=== PATIENT | female | born 1990 | race Caucasian/White ===

== ENCOUNTER 2017-07-05 19:13 | Emergency (ER) | payer OTHER ==
[2017-07-05 19:38] VITALS: BP 135/67
--- NOTE | 2017-07-05 20:08 | UC ---
Eye Complaint HPI - HPI Summary HPI Summary: 27 yo female with left eye redness and tearing a 1 day similar symptoms 3 weeks rxed with eye oint - History of Current Complaint Chief Complaint: UCEye Stated Complaint: LEFT EYE COMPLAINT Time Seen by Provider: 07/05/17 19:34 Hx Obtained From: Patient Hx Last Menstrual Period: DEPO INJ Onset/Duration: Gradual Onset, Lasting Hours Timing: Constant Severity Initially: Mild Pain Intensity: 0 Pain Scale Used: 0-10 Numeric Location of Injury: Conjunctiva Aggravating Factor(s): Nothing Alleviating Factor(s): Nothing Associated Signs And Symptoms: Positive: Drainage (Clear) Eyes: 1 - whitish growth 2 - injected conjunctiva - Risk Factors Penetrating Injury Risk Factor: Negative Acute Glaucoma Risk Factors: Negative Optic Artery Occlusion Risk Factors: Negative - Allergies/Home Medications Allergies/Adverse Reactions: Allergies Allergy/AdvReac Type Severity Reaction Status Date / Time No Known Allergies Allergy Verified 07/05/17 19:33 PMH/Surg Hx/FS Hx/Imm Hx Previously Healthy: Yes Other History Of: Negative For: HIV, Hepatitis C - Surgical History Surgical History: Yes Surgery Procedure, Year, and Place: lap bharath. lithotripsy - Family History Known Family History: Positive: Hypertension Negative: Cardiac Disease - Social History Alcohol Use: None Substance Use Type: None Smoking Status (MU): Never Smoked Tobacco Review of Systems Constitutional: Negative Skin: Negative Eyes: Eye Redness, Other - tearing ENT: Negative Respiratory: Negative Cardiovascular: Negative Gastrointestinal: Negative Genitourinary: Negative Motor: Negative Neurovascular: Negative Musculoskeletal: Negative Neurological: Negative Psychological: Negative Is Patient Immunocompromised?: No All Other Systems Reviewed And Are Negative: Yes Physical Exam Triage Information Reviewed: Yes Appearance: Well-Appearing, No Pain Distress, Well-Nourished Vital Signs: Initial Vital Signs Temp 98 F 07/05/17 19:33 Pulse 85 07/05/17 19:33 Resp 16 07/05/17 19:33 BP 135/67 07/05/17 19:33 Pulse Ox 98 07/05/17 19:33 Vital Signs Reviewed: Yes Eyes: Positive: Conjunctiva Inflamed ENT: Positive: Hearing grossly normal, Pharynx normal. Negative: Nasal drainage , TMs normal, Trismus, Muffled voice, Hoarse voice Neck: Positive: Supple, Nontender, No Lymphadenopathy Respiratory: Positive: Lungs clear, Normal breath sounds, No respiratory distress, No accessory muscle use Cardiovascular: Positive: RRR, No Murmur Musculoskeletal: Positive: ROM Intact, No Edema Neurological: Positive: Alert Psychological Exam: Normal Skin Exam: Normal Eye Complaint Course/Dx - Differential Dx/Diagnosis Provider Diagnoses: left red eye of uncertain cause. Pinguecula vs pterygia vs other Discharge - Discharge Plan Condition: Stable Disposition: HOME Prescriptions: Polymyx/Trimethoprim OPTH* [Polytrim OPHTH*] 1 - 2 drop LEFT EYE QID #1 btl Patient Education Materials: Pterygium (ED), Pinguecula (ED) Forms: *Work Release Referrals: Anatoly Khoury MD [Medical Doctor] - Flores CASANOVA,Pamela [Medical Doctor] - Additional Instructions: you need to see an email campaign specialist for a definite diagnosis and treatment
== END 2017-07-05 20:02 | disposition home or self-care (01) ==
LOC: UCCORT 19:13
DX: H57.8 Other specified disorders of eye and adnexa (principal)
CPT/HCPCS: 99212; G0463

== ENCOUNTER 2018-04-21 17:11 | Emergency (ER) | payer OTHER ==
[2018-04-21 17:38] VITALS: BP 123/73
--- NOTE | 2018-04-21 18:01 | UC ---
Lower Extremity/Ankle HPI - HPI Summary HPI Summary: 27 year old female presents with area of erythema and tenderness to the posteriolateral aspect of her distal upper leg. States she noticed it yesterday. States only painful if touched. Patient does report DVT at age 16 while on an OCP but states this is not anything like that episode. Denies injury , fever, chills, chest pain, shortness of breath, calf tenderness or swelling. - History of Current Complaint Chief Complaint: UCSkin Stated Complaint: LEFT LEG CONCERN Time Seen by Provider: 04/21/18 17:40 Hx Obtained From: Patient Hx Last Menstrual Period: pt is on depo and states not getting a menses Pain Intensity: 0 - Allergies/Home Medications Allergies/Adverse Reactions: Allergies Allergy/AdvReac Type Severity Reaction Status Date / Time No Known Allergies Allergy Verified 07/05/17 19:33 Home Medications: Home Medications Medroxyprogesterone Acetate [Depo-Provera Contraceptiv] 150 mg IM MONTHLY [History Confirmed 04/21/18] PMH/Surg Hx/FS Hx/Imm Hx Previously Healthy: Yes Cardiovascular History: Deep Vein Thrombosis - Surgical History Surgical History: Yes Surgery Procedure, Year, and Place: lap bharath. lithotripsy - Family History Known Family History: Positive: Hypertension - Social History Alcohol Use: None Substance Use Type: None Smoking Status (MU): Never Smoked Tobacco Review of Systems All Other Systems Reviewed And Are Negative: Yes Constitutional: Negative: Fever, Chills Skin: Positive: Other - See HPI Respiratory: Negative: Shortness Of Breath, Cough Cardiovascular: Negative: Palpitations, Chest Pain Motor: Negative: Decreased ROM, Weakness Neurovascular: Negative: Decreased Sensation Musculoskeletal: Negative: Arthralgia, Calf Tenderness, Decreased ROM, Edema Is Patient Immunocompromised?: No Physical Exam - Summary Physical Exam Summary: GENERAL APPEARANCE: Well developed, obese, alert and cooperative, and appears to be in no acute distress. CARDIAC: Normal S1 and S2. No S3, S4 or murmurs. Rhythm is regular. Extremities are warm and well perfused. Capillary refill is less than 2 seconds. LUNGS: Clear to auscultation and percussion without rales, rhonchi, wheezing or diminished breath sounds. ABDOMEN: Positive bowel sounds. Soft, nondistended, nontender. No guarding or rebound. No masses or hepatosplenomegally. MUSKULOSKELETAL: ROM intact to all extremities. No joint erythema or tenderness. Normal muscular development. Normal gait. Bilateral calves supple. EXTREMITIES: No significant deformity or joint abnormality. No edema. Peripheral pulses intact. There are a large number of prominent varicose veins present to the bilateral lower extremities. SKIN: 4 cm area of erythema with mild tenderness to the posteriolateral aspect of the distal left upper leg immediate over a hard, rope-like varicose vein. There are no lesions, induration, or fluctuance present. Triage Information Reviewed: Yes Vital Signs: Initial Vital Signs Temp 97.3 F 04/21/18 17:32 Pulse 78 04/21/18 17:32 Resp 14 04/21/18 17:32 BP 123/73 04/21/18 17:32 Pulse Ox 100 04/21/18 17:32 Vital Signs Reviewed: Yes Lower Extremity Course/Dx - Course Course Of Treatment: 27 year old female presents with area of erythema and tenderness to the posteriolateral aspect of her distal upper leg. States she noticed it yesterday. States only painful if touched. Patient does report DVT at age 16 while on an OCP but states this is not anything like that episode. Denies injury, fever, chills, chest pain, shortness of breath, calf tenderness or swelling. Afebrile. VSS. Exam revealed multiple prominent lower extremity varicosities but no lower extremity edema or calf tenderness. There is an area of erythema with mild tenderness that overlies a firm, rope-like varicose vein that is consistent with a thrombophlebitis. Will treat with NSAIDs and heat. She is to follow up with her PCP in 7 days if no improvement in symptoms. Warning symptoms were reviewed with patient. Verbalizes understanding and agrees with POC. - Differential Dx/Diagnosis Differential Diagnosis/HQI/PQRI: Cellulitis, Infection, Phlebitis Provider Diagnosis: Superficial thrombophlebitis Discharge - Sign-Out/Discharge Documenting (check all that apply): Patient Departure All imaging exams completed and their final reports reviewed: No Studies - Discharge Plan Condition: Stable Disposition: HOME Patient Education Materials: Superficial Thrombophlebitis (ED) Referrals: No Primary Care Phys,NOPCP [Primary Care Provider] - [facility] [Provider Group] - 7 Days Additional Instructions: Your symptoms appear to be from an inflamed superficial vein in your leg that has developed a blood clot. These typically resolve on their own without any complications. Take ibuprofen 600 mg every 8 hours with food for the next 7 days. After 7 days , you may take every 8 hours as needed. Use a warm moist compress to the affected area for 15-20 minutes 4 times a day. Follow up with your primary care provider in 7 days for recheck of symptoms. Seek immediate medical attention in the emergency room if you develop fever greater than 100.5 F, the redness continues to spread, you have increased pain, have swelling of your lower legs especially if on just one side, develop calf pain, chest pain, shortness of breath, or any worsening of symptoms. - Billing Disposition and Condition Condition: STABLE Disposition: Home
== END 2018-04-21 18:07 | disposition home or self-care (01) ==
LOC: UCCORT 17:11
DX: I80.02 Phlebitis and thrombophlebitis of superficial vessels of left lower extremity (principal); Z86.718 Personal history of other venous thrombosis and embolism
CPT/HCPCS: 99211; G0463

== ENCOUNTER 2019-01-27 12:55 | Emergency (ER) | payer OTHER ==
[2019-01-27 13:17] VITALS: BP 141/80
--- NOTE | 2019-01-27 13:17 | UC ---
Lower Extremity/Ankle HPI - HPI Summary HPI Summary: 28-year-old female presents with complaints of left ankle pain. States last evening her dog got out of the house in which she was running after the dog when she slipped off the edge of the curb causing an inversion injury to her ankle. States she has able to walk and bear weight since the injury although with discomfort. Complains of pain to the anterior and lateral aspect of the ankle. Notes bruising and swelling. Denies any numbness or tingling. - History of Current Complaint Stated Complaint: LT ANKLE INJURY Time Seen by Provider: 01/27/19 13:05 Hx Obtained From: Patient Hx Last Menstrual Period: pt is on depo and states not getting a menses - Allergies/Home Medications Allergies/Adverse Reactions: Allergies Allergy/AdvReac Type Severity Reaction Status Date / Time No Known Allergies Allergy Verified 01/27/19 13:16 Home Medications: Home Medications NK [No Home Medications Reported] 01/27/19 [History Confirmed 01/27/19] PMH/Surg Hx/FS Hx/Imm Hx Previously Healthy: Yes - Denies significant PMH Other History Of: Negative For: HIV, Hepatitis C - Surgical History Surgical History: Yes Surgery Procedure, Year, and Place: lap bharath. lithotripsy - Family History Known Family History: Positive: Hypertension Negative: Cardiac Disease - Social History Occupation: Employed Part-time Lives: With Family Alcohol Use: None Substance Use Type: None Smoking Status (MU): Never Smoked Tobacco Review of Systems All Other Systems Reviewed And Are Negative: Yes Constitutional: Positive: Negative Skin: Positive: Bruising Respiratory: Positive: Negative Cardiovascular: Positive: Negative Gastrointestinal: Positive: Negative Genitourinary: Positive: Negative Motor: Negative: Weakness Neurovascular: Negative: Decreased Sensation Musculoskeletal: Positive: Other: - See HPI Neurological: Positive: Negative Is Patient Immunocompromised?: No Physical Exam - Summary Physical Exam Summary: GENERAL APPEARANCE: Alert and cooperative, obese female who appears to be in no acute distress. CARDIAC: Normal S1 and S2. No S3, S4 or murmurs. Rhythm is regular. There is no peripheral edema, cyanosis or pallor. Extremities are warm and well perfused. Capillary refill is less than 2 seconds. Peripheral pulses intact. LUNGS: Clear to auscultation without rales, rhonchi, wheezing or diminished breath sounds. ABDOMEN: Positive bowel sounds. Soft, nondistended, nontender. No guarding or rebound. No masses or hepatosplenomegally. MUSKULOSKELETAL: Normal muscular development. Limping gait. EXTREMITIES: Tenderness to the lateral and anterior left ankle with mild edema and ecchymosis. No gross deformity or laxity. Circulation and sensation intact. SKIN: Skin normal color, texture and turgor. Triage Information Reviewed: Yes Vital Signs Reviewed: Yes Diagnostics - Radiology No standard instances Radiology Interpretation Completed By: Radiologist Summary of Radiographic Findings: Exam Date: 01/27/19 1315. Information: ANKLE LEFT 3+VWS. INDICATION: Left ankle injury. COMPARISON: Comparison is made with a prior study from November 05, 2008. TECHNIQUE: 3 views of the left ankle were obtained. FINDINGS: There is diffuse soft tissue swelling. There is a well-corticated bony density adjacent to the tip of the medial malleolus consistent with an old fracture fragment. There is an old healed fracture of the distal diaphysis of the fibula. No acute fracture is seen. There is widening of the ankle mortise which appears new from the prior study. IMPRESSION: 1. SOFT TISSUE SWELLING, NO ACUTE FRACTURE IS SEEN. 2. WIDENING OF THE ANKLE MORTISE SUGGESTIVE OF UNDERLYING LIGAMENT INJURY. Lower Extremity Course/Dx - Course Course Of Treatment: 28-year-old female presents with complaints of left ankle pain. States last evening her dog got out of the house in which she was running after the dog when she slipped off the edge of the curb causing an inversion injury to her ankle. States she has able to walk and bear weight since the injury although with discomfort. Complains of pain to the anterior and lateral aspect of the ankle. Notes bruising and swelling. Denies any numbness or tingling. Afebrile. Hypertensive and his vital signs stable. Patient had tenderness to the lateral and anterior left ankle with mild edema and ecchymosis. No gross deformity or laxity. Circulation and sensation intact. X-ray showed widening of the mortise of the ankle joint suggestive of a ligament injury but no acute fracture or dislocation. Patient was placed in an Parag wrap and stirrup splint by the RN. She was provided crutches and recommended nonweightbearing until follow-up with orthopedic surgery. Additionally have recommended conservative treatment for a left ankle sprain including [id number] analgesics and RICE. She is to follow-up with orthopedic surgery in 3-5 days. Anticipatory guidance and warning symptoms were reviewed with the patient. Verbalizes understanding and agrees with plan of care. - Differential Dx/Diagnosis Differential Diagnosis/HQI/PQRI: Dislocation, Fracture (Closed), Sprain Provider Diagnosis: Left ankle sprain Discharge ED - Sign-Out/Discharge Documenting (check all that apply): Patient Departure All imaging exams completed and their final reports reviewed: Yes - Discharge Plan Condition: Stable Disposition: HOME Patient Education Materials: Ankle Sprain (ED), Ankle Stirrup Splint (ED) Forms: *Work Release Referrals: Mary Kay Bhatti MD [Primary Care Provider] - Cale Carranza MD [Medical Doctor] - 3 Days (Call for appointment.) Additional Instructions: The x-ray performed in the clinic today showed no evidence of a fracture. There is some widening of the mortise of the ankle joint suggestive of a ligament injury (sprain) of the left ankle. Rest the ankle as much as possible. You should remain non-weight bearing at this time. Wear the PARAG wrap and stirrup splint that was applied in the clinic today. You may remove to sleep and shower but should wear at all other times. Apply ice to the affected area for 15-20 minutes at least 4 times a day to help with the pain and swelling. Elevate the leg to help reduce swelling. Take acetaminophen (Tylenol) or ibuprofen (Advil, Motrin) according to directions as needed for pain. Follow up with orthopedic surgery in 3-5 days. Call for appointment. Seek immediate medical attention if you have severe pain not managed with pain medication, the foot becomes pale or blue in color, or have any worsening of symptoms. - Billing Disposition and Condition Condition: STABLE Disposition: Home
== END 2019-01-27 14:03 | disposition home or self-care (01) ==
LOC: UCCORT 12:55
DX: S93.402A Sprain of unspecified ligament of left ankle, initial encounter (principal); W10.1XXA Fall (on)(from) sidewalk curb, initial encounter; Y93.02 Activity, running; Y92.9 Unspecified place or not applicable
CPT/HCPCS: 99212; G0463

== ENCOUNTER 2020-09-28 09:13 | Inpatient (IN) ==
[~2020-09-28 09:13] MED LIST: Buffered Lidocaine 1% SYRIN 1 ml INTRADERM ONE; DiMENhydriNATE IV 50 mg/ml 1 ml VIAL IV PUSH ONE; Lactated Ringers 1000 ml BAG 1,000 ML IV SCH; Lidocaine 2% PF 5 ML VIAL ONE; Midazolam 2 mg/2 ml VIAL 1 mg/ml 2 ml VIAL (2 mg) ONE; Naloxone 0.4 mg VIAL 0.4 mg/ml 1 ml VIAL IV PRN; Ondansetron 4 mg VIAL 2 MG/ML 2 ml VIAL IV PRN; Propofol 10 MG/ML 20 ML BTL ONE; Rocuronium 50 mg VIAL 10 mg/ml 5 ml VIAL (50 mg) ONE; Sodium Chloride 0.9% 10 ML ONE; fentaNYL 250 mcg/5 ml 50 MCG/ML 5 ml VIAL (250 MCG) ONE
[2020-09-28] MEDS ORDERED: Methylene Blue 0.5 % 50 MG/10 ML AMP IV ONE (09:26)
[2020-09-28] MEDS ORDERED: Heparin 5000 UNITS/ML 1 mL VIAL ONE (09:34)
[2020-09-28] MEDS ORDERED: ceFAZolin 1 GM ADVAN 1 GM ADDV.VIAL IVPB ONE (09:34)
[2020-09-28] MEDS ORDERED: DiMENhydriNATE IV 50 mg/ml 1 ml VIAL ONE (09:34)
[2020-09-28] MEDS ORDERED: ceFAZolin 2 GM PREMIX 2 GM/50 ML BAG ONE (09:35)
[2020-09-28] MEDS ORDERED: Dexamethasone IV 4 MG/ML VIAL 1 ml VIAL ONE (10:44)
[2020-09-28] MEDS ORDERED: Ondansetron 4 mg VIAL 2 MG/ML 2 ml VIAL ONE ×2 (11:36→14:55)
[2020-09-28] MEDS ORDERED: Rocuronium 50 mg VIAL 10 mg/ml 5 ml VIAL (50 mg) ONE ×2 (11:41→13:29)
[2020-09-28] MEDS ORDERED: Ketamine HCL 50 mg/ml 10 ml VIAL (500 MG) ONE (11:58)
[2020-09-28] MEDS ORDERED: HYDROmorphone 1 MG/1 ML SYRINGE ONE ×2 (14:24→15:18)
[2020-09-28] MEDS ORDERED: Sugammadex 500 MG/5 ML 5 ml VIAL IV PUSH ONE (14:28)
[2020-09-28] MEDS ORDERED: HYDROmorphone 0.5 MG/0.5 ML SYRINGE IV SLOW PU PRN (14:42)
[2020-09-28] MEDS ORDERED: HYDROcodone/ACET. 7.5/325 LIQ 15 ML UDC PO PRN (14:42)
[2020-09-28] MEDS ORDERED: Albuterol/Ipratropium NEB.SOL (2.5/0.5 MG) 3 ML NEB.SOLN INH PRN (14:45)
[2020-09-28] MEDS ORDERED: fentaNYL 100 mcg/2 ml 50 MCG/ML VIAL ONE ×2 (14:55→15:33)
[2020-09-28] MEDS: fentaNYL 100 mcg/2 ml 50 MCG/ML VIAL IV PRN ×3 (14:58→15:34)
[2020-09-28] MEDS: HYDROmorphone 1 MG/1 ML SYRINGE IV PRN ×2 (15:28→15:55)
[2020-09-28] MEDS ORDERED: Metoclopramide 5 MG/ML VIAL (10 mg) ONE (16:04)
[2020-09-28] MEDS ORDERED: Metoclopramide 5 MG/ML VIAL (10 mg) IV PRN (16:06)
[2020-09-28] MEDS: Lactated Ringers 1000 ml BAG 1,000 ML IV SCH ×2 (16:52→23:56)
[2020-09-28] MEDS: Heparin 5000 UNITS/ML 1 mL VIAL SUBCUT SCH (21:52)
[2020-09-28] MEDS: Ondansetron 4 mg VIAL 2 MG/ML 2 ml VIAL IV PRN (21:59)
[2020-09-29] MEDS: Heparin 5000 UNITS/ML 1 mL VIAL SUBCUT SCH ×3 (05:56→22:46)
[2020-09-29] MEDS: Ondansetron 4 mg VIAL 2 MG/ML 2 ml VIAL IV PRN ×2 (05:57→13:09)
[2020-09-29] MEDS: Lactated Ringers 1000 ml BAG 1,000 ML IV SCH (06:49)
[2020-09-29] MEDS ORDERED: Pneumococcal Vac 23-Polyvalent IM ONE (09:00)
[2020-09-29] MEDS: D5W 1/2 NS KCl 20 meq 1000 ml 1,000 ML IV SCH (14:27)
[2020-09-30] MEDS: D5W 1/2 NS KCl 20 meq 1000 ml 1,000 ML IV SCH ×3 (00:52→20:03)
[2020-09-30] MEDS: Heparin 5000 UNITS/ML 1 mL VIAL SUBCUT SCH ×3 (07:17→22:23)
[2020-10-01] MEDS: D5W 1/2 NS KCl 20 meq 1000 ml 1,000 ML IV SCH (04:04)
[2020-10-01] MEDS: Heparin 5000 UNITS/ML 1 mL VIAL SUBCUT SCH (06:18)
[2020-10-01 07:11] VITALS: BP 130/86
[2020-10-02] MEDS ORDERED: Scopolamine PATCH Remove NOTE PATCH OFF SCH (09:00)
== END 2020-10-01 11:50 | disposition home or self-care (01) | DRG 403 ==
LOC: AA 09:13 → SSU 17:12
PROVIDERS: ADMIT Surgery; ATTEND Surgery